=== PATIENT | female | born 1970 | race Caucasian/White ===

== ENCOUNTER 2016-11-29 02:51 | Emergency (ER) | payer OTHER ==
[~2016-11-29] VITALS: Ht 162.6 cm; Wt 74.0 kg
[~2016-11-29 02:51] MED LIST: AUG875 PO; BACTDS PO; CARB15DR50 BOTH EARS; CEPH-443 PO; FLUT9.9S NASAL; HYDR-3498 PO; IBUP-1542 PO; NITR-58 PO; PHEN-538 PO; PSEU30TA38 PO; SALI414L TOP; ZOLP5TAB PO
[2016-11-29 02:55] VITALS: Ht 162.6 cm; Wt 74.0 kg
[2016-11-29 04:30] VITALS: BP 126/92; PULSE 75; RESP 19; TEMP 98.1
[2016-11-29] MEDS ORDERED: IBUP-1542 PO (04:50)
[2016-11-29] MEDS ORDERED: IBUPROFEN 600 MG TAB PO ONE (05:00)
--- NOTE | 2016-11-29 05:15 | ERD ---
ER Documentation Chief Complaint Date/Time DATE: 11/29/16 TIME: 05:11 Chief Complaint CP x 1 week, severe pain today, non radiating, hx of anxiety/panic attack HPI 46-year-old female presenting with chest tightness for 1 week. She states that she has had these symptoms for more than 1 week due to stress, but it has worsened over the past week. The pain is constant, aching, described as "sore" , with no associated dizziness, headache, shortness of breath, fever, or chills. She states she has anxiety but does not like taking her anxiety medications. She also has a history of obstructive sleep apnea for which she uses CPAP at night. She was worried so she came into the ED today. No history of blood clots, recent immobilization, recent surgeries. ROS All systems reviewed and are negative except as per history of present illness. Medications Home Meds Active Scripts Ibuprofen* (Motrin*) 600 Mg Tab, 600 MG PO Q6H Y for PAIN AND OR ELEVATED TEMP, #30 TAB Prov:CHINEDU ROGERS MD 11/29/16 Discontinued Scripts Ibuprofen* (Motrin*) 600 Mg Tab, 600 MG PO Q6, #30 TAB Prov:OMEGA CAMPBELL PA-C 01/15/16 Sulfamethoxazole-Trimethoprim* (Bactrim* DS) 800-160 Mg Tab, 1 TAB PO BID for 7 Days, TAB Prov:OMEGA CAMPBELL PA-C 01/15/16 Cephalexin* (Keflex*) 500 Mg Capsule, 500 MG PO QID for 7 Days, CAP Prov:OMEGA CAMPBELL PA-C 01/15/16 Ibuprofen* (Motrin*) 600 Mg Tab, 600 MG PO Q6, #30 TAB Prov:MANAV GAMBOA MD 11/03/15 Ibuprofen* (Motrin*) 600 Mg Tab, 600 MG PO Q6, #30 TAB Prov:JAILYN BALTAZAR PA-C 07/06/15 Hydrocodone Bit-Acetaminophen* ([place]*) 5-325 Mg Tab, 1 TAB PO Q6 Y for PAIN, # 7 TAB Prov:JAILYN BALTAZAR PA-C 07/06/15 Phenazopyridine Hcl* (Pyridium*) 200 Mg Tab, 200 MG PO TID Y for PAIN, #12 TAB 0 Refills Prov:RIVKA DIAZ PA-C 03/12/15 Nitrofurantoin Monohyd Macrocr* (Macrobid*) 100 Mg Capsr, 100 MG PO BID, #14 CAP 0 Refills Prov:JOERIVKA PA-C 03/12/15 Carbamide Peroxide* (Debrox*) 6.5% - 15 Ml Drops, 10 DROP BOTH EARS BID, #1 BOTTLE Prov:JENIFER BATRES PA-C 02/21/15 Fluticasone Propionate (Flonase Allergy Relief) 9.9 Ml [place].susp, 1 SPRAY NASAL DAILY, #1 BOTTLE TO EACH NOSTRIL Prov:JENIFER BATRES PA-C 02/21/15 Pseudoephedrine Hcl* (Pseudoephedrine Hcl*) 30 Mg Tablet, 30 MG PO Q6 Y for CONGESTION, #30 TAB Prov:JENIFER BATRES PA-C 02/21/15 Amoxicillin-Clavulanate K* (Augmentin*) 875 Mg Tab, 875 MG PO BID for 7 Days, TAB Prov:JENIFER BATRES PA-C 02/21/15 Zolpidem Tartrate* (Ambien*) 5 Mg Tablet, 5 MG PO HS Y for INSOMNIA, #15 TAB Prov:OMEGA CAMPBELL PA-C 11/08/14 Salicylic Acid (Salicylic Acid) 414 Ml Lotion, 1 APPLIC TOP DAILY for 84 Days, BOTTLE Apply to affected area Prov:JENIFER BATRES PA-C 09/10/14 Ibuprofen* (Motrin*) 600 Mg Tab, 600 MG PO Q6, #30 TAB Prov:OMEGA CAMPBELL PA-C 08/18/14 Amoxicillin-Clavulanate K* (Augmentin*) 875 Mg Tab, 875 MG PO BID for 10 Days Prov:OMEGA CAMPBELL PA-C 08/18/14 Ibuprofen* (Motrin*) 600 Mg Tab, 600 MG PO Q6H Y for PAIN AND OR ELEVATED TEMP, #30 Prov:SHAWN CHRISTIANSON NP 08/12/14 Allergies Allergies: Coded Allergies: No Known Allergy (Unverified , 08/18/14) PMhx/Soc History of Surgery: No Anesthesia Reaction: No Hx Neurological Disorder: No Hx Respiratory Disorders: No Hx Cardiac Disorders: Yes (htn) Hx Psychiatric Problems: No Hx Miscellaneous Medical Probl: Yes (sinusitis) Hx Alcohol Use: Yes (occasional) Hx Substance Use: No Hx Tobacco Use: Yes Smoking Status: Never smoker FmHx Family History: No diabetes Physical Exam Vitals Vital Signs Date Time Temp Pulse Resp B/P Pulse Ox O2 Delivery O2 Flow Rate FiO2 11/29/16 04:30 98.1 75 19 126/92 100 Room Air 11/29/16 02:55 98.1 88 20 134/83 97 Physical Exam Const: Well-appearing, no apparent distress Head: Atraumatic Eyes: Normal Conjunctiva ENT: Normal External Ears, Nose and Mouth. Neck: Full range of motion..~ No meningismus. No JVD Resp: Clear to auscultation bilaterally Chest Wall: tenderness diffusely to palpation Cardio: Regular rate and rhythm, no murmurs. 2+ distal pulses Abd: Soft, non tender, non distended. Normal bowel sounds Skin: No petechiae or rashes Back: No midline or flank tenderness Ext: No cyanosis, or edema. No calf tenderness. Negative Homans sign bilaterally. Neur: Awake and alert Psych: Normal Mood and Affect Results 24 hrs Current Medications Medications (Trade) Dose Ordered Sig/Wilfredo Route PRN Reason Start Time Stop Time Status Last Admin Dose Admin Ibuprofen (Motrin) 600 mg ONCE ONCE PO 11/29/16 05:00 11/29/16 05:00 DC Procedures/MDM EKG: Rate/Rhythm: Normal Sinus Rhythm QRS, ST, T-waves: No changes consistent w/ acute ischemia Impression: No evidence of ischemia or arrhythmia [facility] Patient is presenting with acute on chronic chest pain that has been going on for quite some time. It has not changed in quality and she has no other associated symptoms. Her vitals are stable and she is afebrile. She is PERC negative, so my suspicion for pulmonary embolism is very low. I doubt acute coronary syndrome or aortic dissection. I also doubt pneumothorax or pneumonia. I do think the patient's symptoms are likely secondary to her anxiety, especially because she states there is increasing stress in her life. There is no ischemia on her EKG today. I do not think any further workup is necessary at this time. Patient agrees with the plan to discharge home and take her anxiety medications as prescribed. Return precautions were discussed. I encouraged her to follow-up with her PCP tomorrow. If any of her symptoms worsen, she was advised to return to the ER. Departure Diagnosis: Primary Impression: Chest tightness or pressure Condition: Stable Patient Instructions: Your Body's Response to Anxiety, Chest Pain, Uncertain Cause Additional Instructions: Follow-up with your primary care doctor in the next 1-2 days regarding your symptoms. Return to the ER for any worsening symptoms. CHINEDU ROGERS MD Nov 29, 2016 05:15
== END 2016-11-29 05:00 | disposition home or self-care (01) ==
LOC: E/R 02:51
DX: R07.89 Other chest pain (principal); I10 Essential (primary) hypertension; Z87.891 Personal history of nicotine dependence
CPT/HCPCS: Z7502; Z7610; 99283

== ENCOUNTER 2017-07-10 16:12 | Emergency (ER) | END 2017-07-10 18:57 | disposition home or self-care (01) ==

== ENCOUNTER 2017-09-12 16:26 | Emergency (ER) | END 2017-09-12 19:44 | disposition home or self-care (01) ==

== ENCOUNTER 2017-10-14 08:37 | Emergency (ER) | END 2017-10-14 10:40 | disposition home or self-care (01) ==

== ENCOUNTER 2018-02-08 12:52 | Emergency (ER) | payer OTHER ==
[~2018-02-08] VITALS: Ht 167.6 cm; Wt 81.2 kg
[~2018-02-08 12:52] MED LIST changes: +ACET500C5 PO; +AMOX500C2 PO; -AUG875 PO; -BACTDS PO; -CEPH-443 PO; -HYDR-3498 PO; +IBUP-1561 PO; -NITR-58 PO; +PENI500T PO; -PHEN-538 PO; +PROM5SYR2 PO; -PSEU30TA38 PO; -SALI414L TOP; -ZOLP5TAB PO
[2018-02-08 12:56] VITALS: BP 142/67; PULSE 90; RESP 20; Ht 167.6 cm; Wt 81.2 kg
[2018-02-08] MEDS ORDERED: KETOROLAC 60 MG INJ IM STA (14:42)
--- NOTE | 2018-02-08 14:43 | ERD ---
ER Documentation Chief Complaint Chief Complaint Complains of cough colds and flu like symptoms x 2 days HPI 47-year-old female with a history of sinus infection presents with 3 days of fro ntal and maxillary sinus pain. Patient states the pain is on the left side. Patient states that the pain is identical to her previous sinus infections. Patient denies any focal neurological deficits, blurry vision. Denies sudden onset, worse headache of life, fever, neck stiffness, rash, headache getting worse with change in position, headache initiated by exertion, CORRALES worse in the morning, CORRALES waking up patient at night, neurological deficits. Past medical history of sinus infections. Denies allergies. Denies social. Denies meds. ROS All systems reviewed and are negative except as per history of present illness. Medications Home Meds Active Scripts Ibuprofen* (Motrin*) 600 Mg Tab, 600 MG PO Q6 for Pain, #30 TAB 0 Refills Prov:JEY NAVARRETE 02/08/18 Amoxicillin/Potassium Clav (Amox-Clav 875-125 mg Tablet) 875-125 mg Tab, 1 TAB PO BID for Sinusitis for 7 Days, #14 TAB 0 Refills Prov:JEY NAVARRETE 02/08/18 Acetaminophen* (Tylophen*) 500 Mg Capsule, 1 CAP PO Q6H PRN for PAIN AND OR ELEVATED TEMP, #30 CAP Prov:SALOMÓN STAPLES PA-C 10/14/17 Fluticasone Propionate (Flonase Allergy Relief) 9.9 Ml [place].susp, 2 SPRAY NASAL DAILY, #1 BOTTLE TO EACH NOSTRIL Prov:SALOMÓN STAPLES PA-C 10/14/17 Ibuprofen* (Motrin*) 600 Mg Tab, 600 MG PO Q6, #30 TAB Prov:SALOMÓN STAPLESC 10/14/17 Penicillin V Potassium* (Penicillin V K*) 500 Mg Tab, 500 MG PO QID for 7 Days, TAB Prov:SALOMÓN STAPLESC 10/14/17 Carbamide Peroxide* (Debrox*) 6.5% - 15 Ml Drops, 10 DROP BOTH EARS BID for 7 Days, BOTTLE Prov:BHAVIK ARIZMENDI 09/12/17 Ibuprofen* (Motrin*) 600 Mg Tab, 600 MG PO Q6, #30 TAB Prov:BHAVIK ARIZMENDI 09/12/17 Ibuprofen* (Motrin*) 400 Mg Tab, 400 MG PO Q8 for 10 Days, #30 TAB Prov:BARI SUNG MD 07/10/17 Promethazine HCl/Codeine (Prometh-Codein 6.25-10 mg/5 ml) 5 Ml Syrup, 5 ML PO TID, #120 ML Prov:BARI SUNG MD 07/10/17 Amoxicillin* (Amoxicillin*) 500 Mg Cap, 500 MG PO TID for 7 Days, CAP Prov:BARI SUNG MD 07/10/17 Ibuprofen* (Motrin*) 600 Mg Tab, 600 MG PO Q6H PRN for PAIN AND OR ELEVATED TEMP, #30 TAB Prov:CHINEDU ROGERS MD 11/29/16 Allergies Allergies: Coded Allergies: No Known Allergy (Unverified , 09/12/17) PMhx/Soc History of Surgery: Yes (sinus septum sx) Anesthesia Reaction: No Hx Neurological Disorder: No Hx Respiratory Disorders: No Hx Cardiac Disorders: Yes (htn) Hx Psychiatric Problems: No Hx Miscellaneous Medical Probl: Yes (sinusitis, seasonal allergies) Hx Alcohol Use: Yes (social) Hx Substance Use: No Hx Tobacco Use: Yes (quit 2 years ago) Smoking Status: Former smoker FmHx Family History: No diabetes, No coronary disease, No other Physical Exam Vitals Vital Signs Date Temp Pulse Resp B/P (MAP) Pulse Ox O2 O2 Flow FiO2 Time Delivery Rate 02/08/18 97.6 90 20 142/67 98 12:56 (92) Physical Exam General: Well developed, will nourished. No acute distress. Ears: Auricles nontender, with no erythema, lesions, or masses bilaterally. TM's unable to be visualized due to cerumen impaction in canal's bilaterally. Head: Left frontal and maxillary sinuses tender to palpation. Throat: No tonsillar erythema, edema, or exudates noted bilaterally. No masses, lesions, or abscesses noted. Uvula midline. Airway patent. Mouth: Mucus membranes moist. No drooling, ulcers, bleeding, or lesions, noted. Heart: RR w/o murmur, rubs, or gallops. Lungs: Clear to auscultation bilaterally w/o wheezes, crackles, rhonchi. Symmetric rise and fall. Equal breath sounds. Neuro: CN II through XII intact. Alert and oriented x3. Results 24 hrs Laboratory Tests Test 02/08/18 14:55 POC Beta HCG, Qualitative NEGATIVE Current Medications Medications Dose Sig/Wilfredo Start Time Status Last (Trade) Ordered Route PRN Stop Time Admin Dose Reason Admin Ketorolac 60 mg ONCE STAT 02/08/18 DC Tromethamine IM 14:42 (Toradol) 02/08/18 14:47 Procedures/MDM Er Course: Toradol MDM: 47-year-old female with a history of sinus infection presents with 3 days of frontal and maxillary sinus pain. Patient states the pain is on the left side. Patient states that the pain is identical to her previous sinus infections. I have low suspicion for intercranial hemorrhage, elevated intercranial pressure, intercranial mass, aneurysm, meningitis, malignant hypertension, giant cell arteritis, infection, or other emergent causes of headache based on patients history and exam. Given patient history of sinus infections and TTP over forontal and maxiallary areas, most likely a sinus infection. Patient prescribed Augmentin and ibuprofin for pain. Patient discharged with strict ER precautions. Patient advised to follow up with PMD. All questions answered at discharge. Departure Diagnosis: Primary Impression: Sinusitis Condition: Stable JEY NAVARRETE Feb 08, 2018 14:43
[2018-02-08] MEDS ORDERED: AMOX1TAB10 PO (14:48)
[2018-02-08] MEDS ORDERED: IBUP-1542 PO (14:48)
== END 2018-02-08 15:07 | disposition home or self-care (01) ==
LOC: FTE 12:52
DX: J32.9 Chronic sinusitis, unspecified (principal); I10 Essential (primary) hypertension; Z87.891 Personal history of nicotine dependence
CPT/HCPCS: 81025; Z7502; 99283; J1885